=== PATIENT | male | born 1950 | race Caucasian/White ===

== ENCOUNTER 2021-11-10 00:04 | Day surgery (SDC) | payer MEDICARE, SELFPAY ==
[2021-11-04 15:11] VITALS: BMI 20.9
--- NOTE | 2021-11-04 15:34 | PC.NURSE ---
Report to the Outpatient Waiting Room, entrance under the green pavilion located off [facility], at time ___1000____ on date _11/10/21 . OR Time: ___1200 . - You and your visitor will be asked to self-screen and do not enter if you have any COVID symptoms. - Only one visitor and NO children visitors are allowed at this time. - The patient visitor is requested to leave or wait in car when not with patient due to restrictions. - A mask is required within the hospital. Patients may have clear liquids (water, carbonated beverages, clear teas, apple juice) until 3 hours prior to surgery (0900 AM) with a maximum of 20 ounces. - No food from midnight until time of surgery - Infants may have breast milk until 4 hours before surgery, formula 6 hours prior to surgery. - Children will be allowed to drink immediately following surgery. If applicable, please bring a bottle or sippy cup to assist with drinking. Juice, water, soda, and popsicles are readily available. For infants on formula, please bring formula the day of surgery. Pacifiers are allowed. Take the following medications with a SIP of water the morning of surgery: NONE Medications to discontinue per physician ASPIRIN PER DR. LEA'S INSTRUCTIONS Date to take last dose Please no make-up, nail finnish, hairspray, perfume, deodorant, or body powder the day of surgery. No jewelry (including any body piercings) or valuables the day of surgery, leave them at home. Please take a shower or bath the night before, or the morning of, surgery with an antibacterial soap. Wear comfortable, loose fitting clothing. Children are encouraged to wear pajamas. - Jewelry must be removed prior to entering the operating room. Rings and piercings that are not removed may be cut off. - The hospital will not accept responsibility for valuables. - Please leave all valuables, including medications, at home the day of surgery. If you are going home after surgery, a licensed passenger coach driver must drive you home. - NO public transportation without another adult. - We recommend that an adult stay with you for 24 hours following discharge. - We also recommend that you do not drive, make important decision, drink alcoholic beverages, or take any drugs that were not prescribed by your health care provider for at least 24 hours after your discharge time. For Pediatric surgeries, we recommend two adults accompany the child home (only one inside the building at this time). Follow any additional instructions given to you from your surgeon. If you or anyone in your household have experienced Covid symptoms in the past week, please notify your surgeon or the nurse liaison at the phone number below for possible testing. Telephone instructions given to ___PT and asked if any additional questions and then verbalized understanding. Patient advised to call surgeon office or pre surgery nurse liaison [phone] if any additional questions.
[2021-11-10] VITALS (8 sets, daily range): BP systolic 109–140; BP diastolic 65–77; PULSE 51–65; RESP 10–16; TEMP 36.3; O2SAT 99–100
--- NOTE | 2021-11-10 10:14 | WPDANESEPPF ---
Anes - Initial Pre Proc Eval Procedure: Operation Date: 11/10/21 12:00 Proposed Procedures p Direct Laryngoscopy, with Biopsy - Goyo Fletcher MD Date/Time: 11/10/21 10:14 Surgeon: Goyo Fletcher MD Pre Op Diagnosis: neck mass Patient Data Age: 71 Gender: M Height: 1.8 m Weight: 68.18 kg Allergies Allergy/AdvReac Type Severity Reaction Status Date / Time No Known Allergies Allergy Verified 11/04/21 15:08 Home Medications Medication Instructions Recorded Confirmed Type aspirin 81 mg capsule 81 mg PO DAILY 11/04/21 11/04/21 History fluoride (sodium) 1.1 % dental gel 1 applic dental HS 11/04/21 11/04/21 History (PreviDent) metoprolol succinate 100 mg 100 mg PO DAILY 11/04/21 11/04/21 History tablet,extended release 24 hr Patient hx anesthesia problems: none Family hx anesthesia problems: none Results Review: All pre-operative results and documents have been reviewed as part of the pre-operative evaluation. [facility] Past Medical History Medical History Afib GERD (gastroesophageal reflux disease) Hypertension Social History Social History Smoking packs per day: 3 Smoking cigarettes per day: 60.0 Years smoked: 30 Smoking pack-years: 90.00 Smoking status: Former smoker Tobacco type: cigarettes Second hand tobacco smoke exposure: No Smoking end date: 05/13/00 Alcohol intake: current Alcohol use details: 1/3 BOTTLE OF WINE WEEKLY Substance use: current Substance use type: marijuana Other substance usage details: 3-4 TIMES A WEEK FOR SLEEP Last use: 11/03/21 Living arrangements: alone Spiritual care concerns: No Anes - Eval Final PreProcedure Day of Procedure 11/10/21 10:14 Patient weight: normal Heart: regular rate and rhythm Lungs: decreased breath sounds Airway: Mallampati scale class II Neurological: alert and oriented Last oral intake: >/= 8 hours ASA classification: III Emergent: no Anesthetic plan: proceed Anesthesia type and monitoring: general ETT and standard monitoring Results Review: All pre-operative results and documents have been reviewed as part of the pre-operative evaluation. Informed Consent: The patient's anesthetic plan and its attendant risks and benefits were discussed with the patient/family/POA. Questions were solicited and answers provided to the satisfaction of the patient/family/POA.
[2021-11-10] MEDS: LACTATED RINGERS 1,000 ML 30 ML IV CONT ×2 (10:51→12:25)
--- NOTE | 2021-11-10 11:09 | WPDHPUPDATE1 ---
History and Physical Update Update Date/Time: 11/10/21 11:09 History and Physical has been reviewed, including an updated exam of the patient. There are NO changes in the patient's condition. Risks, benefits, and alternatives have been discussed and questions answered. Patient agrees to proceed with procedure.
[2021-11-10] MEDS: ceFAZolin 2 GM/D5W 50 ML 2 GM/50 ML BAG IVPB (11:37)
--- NOTE | 2021-11-10 12:08 | W.PM.PROC2 ---
Procedure Note - Detailed Date of Procedure 11/10/21 Pre-op Diagnosis neck mass, base of tongue mass Post-op Diagnosis Same Procedure Performed Direct laryngoscopy with biopsy Surgeon Goyo Fletcher MD Anesthesia General Indications throat and neck mass Findings Friable tongue base mass Description of Procedure On the date of surgery, the patient was identified in the preoperative holding area. All questions answered, consent signed and verified and they agreed to proceed. They were then brought to the OR and placed under general endotracheal anesthesia with a 6.5 sized endotracheal tube. A shoulder roll was placed. Timeout was performed verifying the correct patient identity and procedure to be performed which they were. The patient was then draped in standard fashion for direct laryngoscopy with biopsy. The bed was rotated 90 degrees counter-clockwise and a dental guard was placed to protect the upper teeth. A laryngoscope was then advanced in the oral cavity and upper airway to visualize all subsites of the oral cavity, oropharynx, hypopharynx and larynx. The only lesions noted were on the tongue base. The patient was then suspended from the taylor stand. Under endoscopic visualization, the mass was biopsied in several locations until adequate specimen was taken. Minimal bleeding occurred and did not require significant intervention for hemostasis. With all specimen removed, the procedure was concluded. The laryngoscope was removed, the dental guard removed, and the oral cavity was examined showing no injury to lips, gums, teeth or tongue. Care of the patient was returned to anesthesia who extubated the patient and transferred to the PACU for recovery in stable condition without complication. Goyo Fletcher M.D. Estimated Blood Loss 20 Drains No Packing No Pathology Yes (base of tongue mass. Please r/o HPV associated SCCa) Complications No immediate complications Condition Stable Disposition PACU
[2021-11-10] MEDS: fentaNYL CITRATE INJ (*CRX) 100 MCG/2 ML VIAL 25 MCG IV PUSH (12:35)
--- NOTE | 2021-11-10 12:57 | SUR.PHASEI ---
1256: Simple mask removed.
== END 2021-11-10 14:12 | disposition home or self-care (01) ==
PROVIDERS: Visit Provider Otolaryngology
PROC: 0CJS8ZZ Inspection of Larynx, Via Natural or Artificial Opening Endoscopic (ICD-10-PCS; CPT 31535; principal; 2021-11-10 12:00)
DX: C01 Malignant neoplasm of base of tongue (principal); I10 Essential (primary) hypertension; I48.91 Unspecified atrial fibrillation; Z79.82 Long term (current) use of aspirin; Z87.891 Personal history of nicotine dependence; F12.90 Cannabis use, unspecified, uncomplicated
CPT/HCPCS: 31535; 88304; 88342; 88364; 88365; A9270; J0330; J0690; J1100; J2250; J2310; J2405; J3010; J7120